=== PATIENT | female | born 1985 ===

== ENCOUNTER 2016-12-24 13:38 | Emergency (ER) | payer OTHER ==
[2016-12-24 14:05] VITALS: BMI 34.9
--- NOTE | 2016-12-24 14:41 | OBHP ---
Datetime: 12/24/2016 14:35 IP Adm Impression: Term, intrauterine IP Admit Plan: Observation/Evaluation Admit Comment, IP Provider: IUP at 40w0D unsure if she broke her water for 1w. Irrg CTX. She spoke to her mom who convinced her to come in. She was seen last this past and did not tell he r OB doctor. No VB. +FM PMH: denies PSH: denies NKA PSOH: denies smoking ETOH durg POBGYNH: no std; G1 care:[facility] then changed to Dr Nicko Brownenext appt monday; chart rev'd A: IUP at 40w no evid ROM PLAN: d/w Dr Corey.obtain BPP Abdomen - PN: Normal Back - PN: Normal Lungs - PN: Normal Heart - PN: Normal Thyroid - PN: Normal HEENT - PN: Normal General - PN: Normal Presentation-Admit: Vertex FHR - Baseline A Provider: 140 Membranes, Provider: Intact Comments, ACOG Physical Exam: ROS: General - no fatigue HEENT: No SANTO; no visual disturbance CV: no CP; no palpitations RESP: No Cough; no SOB GI: No N/V/D : No F/U/D MS: no joint pain Pool Provider: Negative Ferning Provider: Negative IP Hx Assessment: The History has been Reviewed and is Current EGA AdmitDate IP: 40.0 Vital Signs Provider: Reviewed; Within Normal Limits IP Chief Complaint: Uterine contractions; Suspected ruptured membranes NICHD Variability Prov Fetus A: Moderate 6-25bpm NICHD Accel Fetus A IP Provider: 15X15 FHR Category Provider Fetus A: Category I NICHD Decel Fetus A IP Provider: None Dilatation, Provider: closed Effacement, Provider: long Station, Provider:
--- NOTE | 2016-12-25 07:20 | US ---
PROCEDURE: HISTORY: ?rupture of membranes COMPARISON: TECHNIQUE: FINDINGS: Biophysical profile score of 8 out of 8. heart motion observed at 136 beats per minute. Amniotic fluid is within normal limits. Estimated gestational age by LMP is 40 weeks. anatomic survey not performed. IMPRESSION: As above.
== END 2016-12-24 18:10 | disposition home or self-care (01) ==
LOC: H.EROB2 13:38
DX: O47.1 False labor at or after 37 completed weeks of gestation (principal); O48.0 Post-term pregnancy; Z3A.40 40 weeks gestation of pregnancy

== ENCOUNTER 2016-12-28 01:01 | Inpatient (IN) | payer OTHER ==
[2016-12-28 01:41] VITALS: BMI 37.2
[2016-12-28] MEDS ORDERED: Lactated Ringer's 1,000 ML IV SCH (02:00)
--- NOTE | 2016-12-28 02:27 | OBHP ---
Datetime: 12/28/2016 01:30 IP Adm Impression: Term, intrauterine ; No Active Labor IP Admit Plan: Admit to unit; Initiate labor protocol IP Hx Assessment: The History has been Reviewed and is Current EGA AdmitDate IP: 40.4 IP Chief Complaint: Uterine contractions Datetime: 12/28/2016 01:20 Admit Comment, IP Provider: IUP at 40+w c/o CTX pain since this evening. No SROM. no VB. +_FM EDC Dec 24 care: [facility] then changed to Dr Nicko Salazar POBGYNH: no STD; PMHX: denies PSH: denies NKA PSoH Denies smoking ETOH drugs A: IUP at 40+w latent phase of labor PLAN: conidtion discused with Dr Bassett...will admit to L_D continue monitoring Pelvic Type - PN: Adequate Extremities - PN: Normal Abdomen - PN: Normal Back - PN: Normal Breast - PN: Not Done Lungs - PN: Normal Heart - PN: Normal Thyroid - PN: Normal Neurologic - PN: Normal HEENT - PN: Normal General - PN: Normal Presentation-Admit: Vertex FHR - Baseline A Provider: 140 Membranes, Provider: Intact Comments, ACOG Physical Exam: ROS: General - no fatigue HEENT: No SANTO; no visual disturbance CV: no CP; no palpitations RESP: No Cough; no SOB GI: No N/V/D : No F/U/D MS: no joint pain Pool Provider: Negative NICHD Decel Fetus A IP Provider: None Dilatation, Provider: 3 Effacement, Provider: 90 Station, Provider: -1 Genitourinary Exam: Normal DTRs - PN: Normal
[2016-12-28 02:28] LABS: BASO # 0.1 K/uL (0.0-0.2); BASO % 0.6 % (0.0-2.0); EOS % 0.3 % (0.0-4.0); HEMATOCRIT 37.2 % (34.0-47.0); LYMPH # 2.3 K/uL (1.0-4.3); LYMPH % 21.7 % (20.0-40.0); MEAN CELL VOLUME 91.2 fl (81.0-99.0); MEAN CORPUSCULAR HEMOGLOBIN 30.8 pg (27.0-31.0); MEAN CORPUSCULAR HGB CONC 33.8 g/dL (33.0-37.0); MEAN PLATELET VOLUME 9.3 fl (7.2-11.7); MONO # 0.5 K/uL (0.0-0.8); NEUT # 7.6 K/uL (1.8-7.0); NEUT % 72.4 % (50.0-75.0); RED CELL DISTRIBUTION WIDTH 13.4 % (11.5-14.5); WHITE BLOOD COUNT 10.5 K/uL (4.8-10.8)
--- NOTE | 2016-12-28 02:31 | OBADHP ---
Datetime: 12/28/2016 01:30 Admit Comment, IP Provider: IUP at 40+w c/o CTX pain since this evening. No SROM. no VB. +_FM EDC Dec 24 care: [facility] then changed to Dr Nicko Salazar POBGYNH: no STD; PMHX: denies PSH: denies NKA PSoH Denies smoking ETOH drugs A: IUP at 40+w latent phase of labor PLAN: Spoek with park and her family about labor, delivery, pain management, augmentation, medication s and . Her questions answered...check CBC, Type and screen RPR and HIV IVF Presentation-Admit: Vertex IP Fetus A Comments: Will prolong monitoring FHR - Baseline A Provider: 140 Contraction Comments Provider: Occ occ occ Comments, ACOG Physical Exam: ROS: General - no fatigue HEENT: No SANTO; no visual disturbance CV: no CP; no palpitations RESP: No Cough; no SOB GI: No N/V/D : No F/U/D MS: no joint pain IP Hx Assessment: The History has been Reviewed and is Current IP Chief Complaint: Uterine contractions NICHD Variability Prov Fetus A: Moderate 6-25bpm NICHD Accel Fetus A IP Provider: 10X10 FHR Category Provider Fetus A: Category II NICHD Decel Fetus A IP Provider: None Dilatation, Provider: 3 Effacement, Provider: 90 Station, Provider: -1 EGA AdmitDate IP: 40.4 IP Adm Impression: Term, intrauterine ; No Active Labor IP Admit Plan: Admit to unit; Initiate labor protocol Datetime: 12/28/2016 01:20 Pelvic Type - PN: Adequate Extremities - PN: Normal Abdomen - PN: Normal Back - PN: Normal Breast - PN: Not Done Lungs - PN: Normal Heart - PN: Normal Thyroid - PN: Normal Neurologic - PN: Normal HEENT - PN: Normal General - PN: Normal Membranes, Provider: Intact Pool Provider: Negative Genitourinary Exam: Normal DTRs - PN: Normal Datetime: 12/24/2016 14:35 Ferning Provider: Negative Vital Signs Provider: Reviewed; Within Normal Limits Datetime: 11/11/2016 20:27 Gestation - Est Wks by US: 33+ wks
[2016-12-28] MEDS: Lactated Ringer's 1,000 ML IV SCH ×2 (03:00→04:00)
[2016-12-28] MEDS ORDERED: Bupivacaine HCl 0.25% PF (10 ml) Inj ONE (04:02)
[2016-12-28] MEDS ORDERED: Fentanyl/Bupivacaine HCl 250 ML EPI ONE (04:02)
[2016-12-28 04:40] VITALS: BP 125/71; PULSE 60; RESP 18; TEMP 98.1; O2SAT 100
--- NOTE | 2016-12-28 08:08 | OBADHP ---
Datetime: 12/28/2016 08:01 Admit Comment, IP Provider: came in in severe pains early today and 3cm dilated Admitted to l/d and epidural given Some variable decels noted and more consistent now SVE 5cm 80%, AROM no fluid noted in ternal electrode applied since non-reasuring ext tracing and decel noted but recovered Will mon itor tracing Discussed with pt. agreed with above management Extremities - PN: Normal Abdomen - PN: Abnormal Back - PN: Normal Breast - PN: Normal Lungs - PN: Normal Thyroid - PN: Normal Neurologic - PN: Normal HEENT - PN: Normal General - PN: Normal Presentation-Admit: cephalic FHR - Baseline A Provider: 140's Membranes, Provider: Ruptured Contraction Comments Provider: irregular Comments, ACOG Physical Exam: Abd at term gravid NT, Ext no calf tenderness Gestation - Est Wks by US: 40+ IP Hx Assessment: The History has been Reviewed and is Current Vital Signs Provider: Reviewed IP Chief Complaint: Uterine contractions NICHD Variability Prov Fetus A: Minimal - Undetectable to <5bpm NICHD Accel Fetus A IP Provider: 10X10 NICHD Decel Fetus A IP Provider: Early; Variable Dilatation, Provider: 5cm Effacement, Provider: 80% Genitourinary Exam: Normal DTRs - PN: Normal EGA AdmitDate IP: 40.4 IP Adm Impression: Postterm, intrauterine ; Active labor IP Admit Plan: Admit to unit; Initiate labor protocol
[2016-12-28] MEDS ORDERED: Morphine 1 mg/ml preservative-free Inj(Duramorph) ONE (08:41)
[2016-12-28] MEDS ORDERED: Lidocaine 2% PF (10 ml) Amp ONE (08:42)
[2016-12-28] MEDS ORDERED: cefOXitin Sodium 1 GM in Sodium Chloride 0.9% 100 ML IVPB STA (08:43)
[2016-12-28] MEDS ORDERED: Oxytocin 30 units/LR 500ML 500 ML IV ONE (08:56)
[2016-12-28] MEDS: Oxytocin 30 units/LR 500ML 500 ML IV SCH (09:18)
[2016-12-28] MEDS ORDERED: DiphenhydrAMINE 50 mg/ml Inj IVP PRN (09:34)
--- NOTE | 2016-12-28 10:10 | OBDS ---
DELIVERY PERSONNEL Nurse Criminal Court Judge Certified: Tyrone Monroe CNM Delivery Doctor: Soha Salazar MD/Dominguez Conner MD Scrub Nurse: Keiko Sow OBT Tube And Manifold Builder: Gamal Marie RN/Eileen Anesthesiologist: Soha Phillips MD MATERNAL INFORMATION Delivery Anesthesia: Epidural Medications in Delivery: Pitocin Placenta Cultured: No Maternal Complications: None Other Maternal Complications: non reasuring tracing Provider Comments: see dictated surgeons note LABOR SUMMARY EDC: 12/24/2016 00:00 No. Babies in Womb: 1 LABOR INFORMATION Reason for Induction: Not Applicable Onset of Labor: 12/27/2016 23:00 Group B Beta Strep: Negative Steroids Given: None Reason Steroids Not Administered: Not Applicable STAGES OF LABOR Stage 3 hrs: 0 Stage 3 min: 1 Total Time in Labor hrs: 10 Total Time in Labor min: 18 VAGINAL DELIVERY Sponge Count Correct: Yes Sharps Count Correct: Yes Count Comment: count correct x3 CSECTION DELIVERY Primary Indication: Other Other Primary Indication: intolerance to labor Secondary Indication: non reasuring tracing CSection Urgency: Emergency CSection Incidence: Primary Labor: Labor CSection Incision: Lower Uterine Transverse Uterine Closure: Double-layer closure BABY A INFORMATION Infant Delivery Date/Time: 12/28/2016 09:17 Method of Delivery: Born in Route : No : N/A Forceps: N/A Vacuum Extraction: N/A Shoulder Dystocia : No SHOULDER DYSTOCIA BABY A Delivery Date/Time: 12/28/2016 09:17 PRESENTATION/POSITION BABY A Presentation: Compound PLACENTA INFORMATION BABY A Placenta Delivery Time : 12/28/2016 09:18 Placenta Method of Delivery: Expressed Placenta Status: Delivered INFORMATION BABY A Gestational Age at Delivery: 40.0 Outcome : Liveborn Condition : Stable Sex: Female CORD INFORMATION BABY A No. Cord Vessels: 3
[2016-12-28] MEDS: cefOXitin Sodium 1 GM in Sodium Chloride 0.9% 100 ML IVPB SCH (17:33)
[2016-12-29] MEDS: cefOXitin Sodium 1 GM in Sodium Chloride 0.9% 100 ML IVPB SCH (00:29)
[2016-12-29] MEDS: Simethicone 80 mg Chewtab PO PRN ×2 (06:44→22:12)
--- NOTE | 2016-12-29 07:54 | OBPPN ---
Datetime: 12/29/2016 07:50 PP Pain Prov: Within normal limits PP Pain Prov comment: No SOB, chest pains or leg pains PP Nausea Prov: Denies PP Flatus Prov: Yes PP BM Prov: No PP Breasts Prov: Normal PP Lungs Prov: Normal PP Abdomen/Uterus Prov: Abnormal PP Lochia Prov: Normal PP Vulva/Perineum Prov: Normal PP CVA Tenderness Prov: Normal PP Extremities Prov: Normal PP C/S Incision Prov: Normal PP Progress Prov: Normal PP Comments Phys Exam Prov: Abd soft not distended, fundus firm below the umb. Dressing intact breanna nat, no active bleeding or suppt. Ext no calf tenderness PP Impression Prov: Normal progression PP Plan Prov: Continue present management PP Progress Note Prov: OOB to chair with help, increase diet as tolerated, pending CBC results. Gerardo byrnes po care
[2016-12-29 08:00] LABS: HEMATOCRIT 32.3 % (34.0-47.0); MEAN CELL VOLUME 91.2 fl (81.0-99.0); MEAN CORPUSCULAR HEMOGLOBIN 31.7 pg (27.0-31.0); MEAN CORPUSCULAR HGB CONC 34.8 g/dL (33.0-37.0); RED CELL DISTRIBUTION WIDTH 13.4 % (11.5-14.5); WHITE BLOOD COUNT 8.6 K/uL (4.8-10.8)
[2016-12-29] MEDS: Oxycodone/Acetaminophen 5/325 mg Tab PO PRN ×2 (09:33→17:35)
[2016-12-29] MEDS ORDERED: cefOXitin Sodium 1 GM in Sodium Chloride 0.9% 100 ML IVPB SCH (10:00)
[2016-12-30] MEDS: Simethicone 80 mg Chewtab PO PRN ×3 (09:25→19:53)
--- NOTE | 2016-12-30 13:26 | OBPPN ---
Datetime: 12/30/2016 12:13 PP Pain Prov: Within normal limits PP Pain Prov comment: No SOB, chest pains or leg pains PP Nausea Prov: Denies PP Flatus Prov: Yes PP BM Prov: No PP Breasts Prov: Normal PP Lungs Prov: Normal PP Abdomen/Uterus Prov: Abnormal PP Lochia Prov: Normal PP Vulva/Perineum Prov: Normal PP CVA Tenderness Prov: Normal PP Extremities Prov: Normal PP C/S Incision Prov: Normal PP Progress Prov: Normal PP Comments Phys Exam Prov: Abd soft ND, depressible fundus firm below the umb. Incision clean and d ry no suppt or discharge no sign of infection Ext no calf tenderness PP Impression Prov: Normal progression PP Plan Prov: Continue present management PP Plan Other Prov: dulcolax suppt PP Progress Note Prov: OOB and ambulation, continue po care IP PP Procedures: None
[2016-12-31] MEDS: Simethicone 80 mg Chewtab PO PRN ×2 (09:58→22:41)
--- NOTE | 2016-12-31 12:24 | OBPPN ---
Datetime: 12/31/2016 12:13 PP Pain Prov: Within normal limits PP Nausea Prov: Denies PP Flatus Prov: Yes PP Breasts Prov: Normal PP Heart Prov: Normal PP Lungs Prov: Normal PP Abdomen/Uterus Prov: Normal PP Lochia Prov: Normal PP Vulva/Perineum Prov: Normal PP CVA Tenderness Prov: Normal PP Extremities Prov: Normal PP C/S Incision Prov: Normal PP Progress Prov: Normal PP Impression Prov: Normal progression PP Plan Prov: Continue present management PP Progress Note Prov: stable pod3 continue present care IP PP Procedures: None Vital Signs Provider PP: Reviewed; Within Normal Limits
[2017-01-01] MEDS: Simethicone 80 mg Chewtab PO PRN (09:59)
--- NOTE | 2017-01-01 11:08 | OBPPN ---
Datetime: 01/01/2017 11:05 PP Pain Prov: Within normal limits PP Pain Prov comment: no SOB, chest pains or leg pains PP Nausea Prov: Denies PP Flatus Prov: Yes PP BM Prov: Yes PP Breasts Prov: Normal PP Heart Prov: Normal PP Abdomen/Uterus Prov: Abnormal PP Lochia Prov: Normal PP Vulva/Perineum Prov: Normal PP CVA Tenderness Prov: Normal PP Extremities Prov: Normal PP C/S Incision Prov: Normal PP Progress Prov: Normal PP Comments Phys Exam Prov: Abd soft ND, depressible, fundus firm below the umb. Incision clean and dry no suppt or discharge prolene in place. Ext no calf tenderness. PP Impression Prov: Normal progression PP Plan Prov: Discharge PP Progress Note Prov: D/C home and folllow up ofice 1 wk IP PP Procedures: None Vital Signs Provider PP: Reviewed
--- NOTE | 2017-01-01 12:27 | OBDCSUM ---
Datetime: 01/01/2017 12:25 Discharged to, Provider: Home Follow up at, Provider: Dr Martin Ospina Instr Activity: Bedrest; May be up to bathroom; May be up for meals; May Shower Disch Instr Diet: Regular Discharge Instructions, Provider: Routine instructions given Discharge Diagnosis, Provider: Term Delivered Discharge Time: 01/01/2017 12:25 Follow up in weeks, Provider: 1 wk Disch Referrals: None Contraception discussed, Prov: Yes Disch Activity Restrictions: No exercising; No lifting; No driving; Minimize walking; Minimize stair -climbing; No sexual activity; Nothing in vagina - Galt, tampons, douche Discharge Comment, Provider: instructions given Contraception after Delivery: Undecided Datetime: 01/01/2017 11:49 Discharged to, Provider: Home Follow up at, Provider: Dr. Martin Ospina Instr Activity: Normal activity; May be up to bathroom; May be up for meals; May Shower Disch Instr Diet: Regular Follow up in weeks, Provider: 1 week Disch Referrals: None Disch Activity Restrictions: Minimize stair-climbing; No sexual activity; Nothing in vagina - Interc ourse, tampons, douche
--- NOTE | 2017-01-02 19:12 | OP ---
PROCEDURE DATE: 12/28/2016 PREOPERATIVE DIAGNOSES: 1. at 40+ weeks gestation. 2. Labor. 3. Non reassuring tracing. 4. intolerance to labor. POSTOPERATIVE DIAGNOSES: 1. at 40+ weeks gestation. 2. Labor. 3. Non reassuring tracing. 4. intolerance to labor. 5. Thick meconium stained fluid. 6. Compound presentation. PROCEDURE PERFORMED: Primary low transverse segment section. SURGEON: Dr. Salazar. HEALTH CARE LEGAL ASSISTANT: Suzy Granados. Dr. Conner was there present during the entire procedure. Physical Science Technician was needed in order to position the patient, open up the abdomen, delivery of the baby an d closure of the abdomen. ANESTHESIA USED: Epidural per Dr. Phillips. ESTIMATED BLOOD LOSS: 800 mL. DRAINS USED: None. REPLACEMENTS USED: None. FINDINGS: 1. Delivered a living baby girl. Baby appears term. Baby cries spontaneously. Compound presentati on with the left arm. 2. Amniotic fluid thick meconium stained. 3. Placenta complete and intact with meconium stained membranes. 4. Both tubes and ovaries appear grossly within normal limits to inspection bilaterally. PROCEDURE: The patient was taken to the operating room and placed on the operating table in a supine position. Following augmentation of epidural anesthesia, the abdomen was draped and prepped in the usual sterile manner. Gacria catheter had been inserted into the bladder and was draining fluid. At this time, Venodyne boots were then applied to both legs and after draping and prepping the abdomen, anesthesia tested and found to be well secure. A Pfannenstiel incision was then made using sharp dis section 2 fingerbreadths above the symphysis pubis. The incision was then extended down to subcutane ous tissue using sharp dissection. Hemostasis was obtained by means of electrocoagulation. Fascia w as then identified, was then entered at the midline. Incision in the fascia was then extended latera lly on each direction. Following this, we then proceeded to identify the rectus muscle, which was th en slit at the midline exposing the peritoneum. Peritoneal layer was then picked up using 2 Yamile cl amps, retracted superiorly and then entered using sharp dissection. The bladder was then identified and was then retracted inferiorly using a [place] retractor. The low transverse segment of the uteru s was then identified and the visceral peritoneum covering this area was then entered using sharp dis section. Using blunt dissection, a bladder flap was then created and retracted inferiorly using the same [place] retractor. Following this, an incision was then made in the low transverse segment of t he uterus. Upon entering the uterine cavity, thick meconium stained fluid noted to be present. At t his time, the incision was then extended laterally in each direction using bandage scissors. Using a manual scooping procedure, a living baby girl was then delivered. The baby was immediately and aggr essively aspirated using a bulb suction. The umbilicus was then doubly clamped, cut and the baby was handed to the pediatric personnel who was standing by. The baby appeared to have been in a compound presentation with the left arm. At this time, samples of cord blood were then obtained and the plac enta was then delivered complete and intact. Edges of the uterine incision were then secured using m ultiple T clamps. The uterus was then exteriorized to provide better visualization and the uterine c avity was then thoroughly cleaned using moist lap pad. The uterus massaged and contracted well. At this time, the uterine incision was then approximated using 0 Vicryl suture in a continuous interlock ing manner. A second layer was also applied using 0 Vicryl suture in a continuous manner. Hemostasi s checked and found to be well secure. The bladder flap was then approximated using a 2-0 Vicryl in a continuous manner. Following this, we then proceeded to note that both tubes and ovaries appear gr ossly within normal limits to inspection bilaterally. Free amniotic fluid and blood were then evacua minna from the pelvic cavity. The pelvic cavity was then thoroughly cleaned using saline solution and all operative areas checked, hemostatically secure. The uterus was then allowed to retract back into its original position. Again, all operative areas checked, hemostatically secure and the peritoneum was then closed using 0 Vicryl suture in a continuous manner. Rectus muscle was also closed in the midline using 0 Vicryl suture in a continuous manner. Fascia was then identified, was then approxima minna using 1 Vicryl suture in a continuous manner. Fascia was then checked and found to be free of de fect. Subcutaneous tissue was then irrigated using saline solution and approximated using several in terrupted 2-0 plain suture. The skin was then approximated using a 3-0 Prolene in a subcuticular fas hion. Steri-Strips were then applied to the incision. The patient tolerated the procedure well. Th ere were no complications. She was transferred to the recovery room in satisfactory condition. Albina r fluid noted to be present in the Garcia bag at this time. Sponge, instrument, and needle count albert ect x 3. Keyon Salazar MD cc: 71 TT: 01/02/2017 19:11:33 jn
== END 2017-01-01 14:00 | disposition home or self-care (01) | DRG 371 ==
LOC: H.EROB2 01:01 → H.L&D 01:47 → H.OB/GYN 15:19
PROVIDERS: ADMIT Specialist; ATTEND Specialist
PROC: 10D00Z1 Extraction of Products of Conception, Low, Open Approach (ICD-10-PCS; principal; 2016-12-28)
PROC: 4A1HXCZ Monitoring of Products of Conception, Cardiac Rate, External Approach (ICD-10-PCS; 2016-12-28)
DX: O76 Abnormality in fetal heart rate and rhythm complicating labor and delivery (principal); O32.6XX0 Maternal care for compound presentation, not applicable or unspecified; Z37.0 Single live birth; O77.0 Labor and delivery complicated by meconium in amniotic fluid; Z3A.40 40 weeks gestation of pregnancy

== ENCOUNTER 2018-04-27 10:52 | Emergency (ER) | payer OTHER ==
[2018-04-27 10:52] VITALS: BMI 37.2
[2018-04-27 11:09] VITALS: TEMP 98.6; O2SAT 100
--- NOTE | 2018-04-27 11:34 | ED PDOC ---
HPI: Female Pain Time Seen by Provider: 04/27/18 11:13 Chief Complaint (Nursing): Female Genitourinary History Per: Patient Onset/Duration Of Symptoms: Other (1 week) Current Symptoms Are (Timing): Still Present Severity: Mild Associated Symptoms: Nausea Additional Complaint(s): Nausea and malaise x 1 week. No vomiting or diarrhea. Home preg equivocal. LMP March 07. Denies bad pain or vaginal bleeding. Abnormal Vaginal Bleeding: No Past Medical History Vital Signs: Last Vital Signs Temp 98.6 F 04/27/18 11:06 Pulse 98 H 04/27/18 11:06 Resp 18 04/27/18 11:06 BP 107/71 04/27/18 11:06 Pulse Ox 100 04/27/18 11:06 - Medical History PMH: No Chronic Diseases - Family History Family History: States: Unknown Family Hx - Immunization History Hx Tetanus Toxoid Vaccination: No Hx Influenza Vaccination: No Hx Pneumococcal Vaccination: No - Home Medications Home Medications: Ambulatory Orders Medication Instructions Recorded Multivit/Folic Acid/I 1 tab PO DAILY 12/24/16 [ Plus] oxyCODONE/Acetaminophen [Percocet 1 ea PO Q4 PRN #30 tab 01/01/17 5/325 mg Tab] Doxylamine/Pyridoxine HCl (B6) 1 each PO DAILY #15 tablet. 04/27/18 [Rocio Mann 10-10 mg Tablet] - Allergies Allergies/Adverse Reactions: Allergies Allergy/AdvReac Type Severity Reaction Status Date / Time latex Allergy Mild itching,LINUS Verified 12/29/16 14:19 H Review of Systems Constitutional: Negative for: Fever Gastrointestinal: Positive for: Nausea. Negative for: Abdominal Pain, Diarrhea Genitourinary Female: Negative for: Dysuria, Frequency, Vaginal Bleeding Physical Exam - Physical Exam Appears: Positive for: Non-toxic, No Acute Distress Skin: Positive for: Normal Color, Warm, DRY Cardiovascular/Chest: Positive for: Regular Rate, Rhythm Respiratory: Positive for: CNT, Normal Breath Sounds Gastrointestinal/Abdominal: Positive for: Bowel Sounds, Soft. Negative for: Tenderness Extremity: Positive for: Normal ROM Neurologic/Psych: Positive for: Alert, Oriented - Laboratory Results Result Diagrams: 04/27/18 12:09 04/27/18 12:09 - ECG O2 Sat by Pulse Oximetry: 100 Disposition - Clinical Impression Clinical Impression: Morning sickness, - Patient ED Disposition Is Patient to be Admitted: No Counseled Patient/Family Regarding: Studies Performed, Diagnosis, Need For Followup, Rx Given - Disposition [facility] Disposition: Routine/Home Disposition Time: 13:14 Condition: FAIR Prescriptions: Doxylamine/Pyridoxine HCl (B6) [Rocio Mann 10-10 mg Tablet] 1 each PO DAILY # 15 tablet. Instructions: Morning Sickness (DC), - The First Month Forms: [employer] (Cameroonian) Print Language: [place] CITIZEN
[2018-04-27 12:18] LABS: BASO % 0.5 % (0.0-2.0); EOS % 0.3 % (0.0-4.0); HEMOGLOBIN 13.7 g/dL (12.0-16.0); LYMPH # 1.6 K/uL (1.0-4.3); LYMPH % 22.6 % (20.0-40.0); MEAN CELL VOLUME 90.3 fl (81.0-99.0); MEAN CORPUSCULAR HEMOGLOBIN 30.8 pg (27.0-31.0); MEAN CORPUSCULAR HGB CONC 34.1 g/dL (33.0-37.0); MEAN PLATELET VOLUME 8.4 fl (7.2-11.7); MONO # 0.3 K/uL (0.0-0.8); MONO % 4.9 % (0.0-10.0); NEUT # 5.1 K/uL (1.8-7.0); NEUT % 71.7 % (50.0-75.0); RBC 4.44 Mil/uL (3.80-5.20); RED CELL DISTRIBUTION WIDTH 12.9 % (11.5-14.5); WHITE BLOOD COUNT 7.1 K/uL (4.8-10.8)
[2018-04-27 12:52] LABS: ALBUMIN 4.2 g/dL (3.5-5.0); BLOOD UREA NITROGEN 8 mg/dl (7-17); CALCIUM 9.7 mg/dL (8.4-10.2); GFR NON-AFRICAN AMERICAN > 60
[2018-04-27 12:53] LABS: ALB/GLOB RATIO 1.1 (1.0-2.1); ALT/SGPT 20 U/L (9-52); AST/SGOT 19 U/L (14-36)
[2018-04-27 13:31] VITALS: BP 96/60; PULSE 74; RESP 14
== END 2018-04-27 13:30 | disposition home or self-care (01) ==
LOC: H.ER 10:52
DX: O21.0 Mild hyperemesis gravidarum (principal)

== ENCOUNTER 2018-10-05 11:31 | Emergency (ER) | payer OTHER ==
[2018-10-05 11:53] VITALS: BMI 33.7
[2018-10-05 11:56] VITALS: O2SAT 99
--- NOTE | 2018-10-05 14:59 | ED PDOC ---
HPI: General Adult Time Seen by Provider: 10/05/18 12:53 Chief Complaint (Nursing): Weakness/Neurological Deficit History Per: Patient Onset/Duration Of Symptoms: Days (2) Current Symptoms Are (Timing): Better Severity: Mild Additional Complaint(s): Generalized weakness and nausea since yesterday. Denies vomiting or diarrhea. Denies fever or cough. Denies urinary sxs. Denies vaginal bleeding or and pain. Past Medical History Vital Signs: Last Vital Signs Temp 98.5 F 10/05/18 11:53 Pulse 111 H 10/05/18 11:53 Resp 20 10/05/18 11:53 BP 112/69 10/05/18 11:53 Pulse Ox 99 10/05/18 11:53 - Medical History PMH: No Chronic Diseases - Family History Family History: States: Unknown Family Hx - Immunization History Hx Tetanus Toxoid Vaccination: No Hx Influenza Vaccination: No Hx Pneumococcal Vaccination: No - Home Medications Home Medications: Ambulatory Orders Medication Instructions Recorded Multivit/Folic Acid/I 1 tab PO DAILY 12/24/16 [ Plus] oxyCODONE/Acetaminophen [Percocet 1 ea PO Q4 PRN #30 tab 01/01/17 5/325 mg Tab] Doxylamine/Pyridoxine HCl (B6) 1 each PO DAILY #15 tablet. 04/27/18 [Rocio Mann 10-10 mg Tablet] - Allergies Allergies/Adverse Reactions: Allergies Allergy/AdvReac Type Severity Reaction Status Date / Time latex Allergy Mild itching,LINUS Verified 10/05/18 12:22 H Review of Systems Constitutional: Negative for: Fever Gastrointestinal: Positive for: Nausea. Negative for: Vomiting, Abdominal Pain, Diarrhea Genitourinary Female: Negative for: Dysuria, Frequency, Vaginal Bleeding Physical Exam - Physical Exam Appears: Positive for: Non-toxic, No Acute Distress Cardiovascular/Chest: Positive for: Regular Rate, Rhythm Respiratory: Positive for: CNT, Normal Breath Sounds Gastrointestinal/Abdominal: Positive for: Bowel Sounds, Soft, Other (Gravid). Negative for: Tenderness Neurologic/Psych: Positive for: Alert, Oriented. Negative for: Motor/Sensory Deficits - ECG O2 Sat by Pulse Oximetry: 99 Disposition - Clinical Impression Clinical Impression: - Patient ED Disposition Is Patient to be Admitted: Transfer of Care - Disposition Disposition: Transfer of Care Disposition Time: 15:08 Condition: FAIR Forms: [employer] (Welsh) Patient Signed Over To: Melisa Patrick
[2018-10-05 15:24] LABS: BASO % 0.4 % (0.0-2.0); EOS % 0.2 % (0.0-4.0); HEMOGLOBIN 11.1 g/dL (12.0-16.0); LYMPH # 1.9 K/uL (1.0-4.3); LYMPH % 21.6 % (20.0-40.0); MEAN CORPUSCULAR HEMOGLOBIN 30.4 pg (27.0-31.0); MEAN CORPUSCULAR HGB CONC 33.4 g/dL (33.0-37.0); MEAN PLATELET VOLUME 7.9 fl (7.2-11.7); MONO # 0.4 K/uL (0.0-0.8); MONO % 4.4 % (0.0-10.0); NEUT # 6.4 K/uL (1.8-7.0); NEUT % 73.4 % (50.0-75.0); NRBC % 0.1 % (0.0-0.0); RBC 3.67 Mil/uL (3.80-5.20); RED CELL DISTRIBUTION WIDTH 12.2 % (11.5-14.5); WHITE BLOOD COUNT 8.7 K/uL (4.8-10.8)
[2018-10-05 15:35] LABS: ALBUMIN 3.6 g/dL (3.5-5.0); ALT/SGPT 12 U/L (9-52); AST/SGOT 21 U/L (14-36); BLOOD UREA NITROGEN 7 mg/dl (7-17); GFR NON-AFRICAN AMERICAN > 60
--- NOTE | 2018-10-05 15:54 | ED PDOC ---
- Laboratory Results Result Diagrams: 10/05/18 15:18 10/05/18 15:18 - ECG O2 Sat by Pulse Oximetry: 99 - Progress ED Course And Treament: 3p Rec'd endorsement from Dr Mcqueen who d/w Dr Salazar. Labs pending and when resulted pt to be sent to [facility] for NST. 345p Labs resulted. Pt to be sent to [facility]. Disposition - Clinical Impression Clinical Impression: - POA Present On Arrival: None - Disposition Disposition: Routine/Home (dc'd to go to [facility]) Disposition Time: 15:54 Condition: STABLE Additional Instructions: GO TO OB ED FOR FURTHER EVALUATION Instructions: - The Seventh Month Forms: [employer] (Serbian)
[2018-10-05 16:50] VITALS: BP 116/80; PULSE 72; RESP 17; TEMP 98.3
== END 2018-10-05 16:10 | disposition home or self-care (01) ==
LOC: H.ER 11:31
DX: Z33.1 Pregnant state, incidental (principal)

== ENCOUNTER 2018-10-21 01:48 | Emergency (ER) | payer OTHER ==
[2018-10-21 01:48] VITALS: BMI 35.4
[2018-10-21 02:03] VITALS: RESP 17; O2SAT 98
[2018-10-21 07:48] VITALS: BP 100/63; PULSE 118; TEMP 98
--- NOTE | 2018-10-22 13:46 | OBHP ---
Datetime: 10/21/2018 03:17 IP Adm Impression: , intrauterine ; No Active Labor IP Chief Complaint Other: abdominal discomfort IP Adm Impression Other: Gastritis IP Admit Plan: Observation/Evaluation; Discharge home Admit Comment, IP Provider: Patient reports to the labor and delivery today for check up. She report s that her is being seen at the ER for abdominal cramps and she wants to be checked up for ab dominal discomfort. She and her may have eaten something and they are having the cramps. She denies any fever, diarrhea or vomitting. O: Afebrile ChestL CTA B/L Abd: Soft, NT, BS- present FHR- Category 1 Assessment: IUP at 32weeks Abdominal discomfort NST- Reactive. Plan: D/C Home Antacids recommended Follow up with Dr Salazar. Pelvic Type - PN: Adequate Extremities - PN: Normal Abdomen - PN: Normal Back - PN: Normal Breast - PN: Normal Lungs - PN: Normal Heart - PN: Normal Thyroid - PN: Normal Neurologic - PN: Normal HEENT - PN: Normal General - PN: Normal FHR - Baseline A Provider: 150 Gestation - Est Wks by US: 32.0 EGA AdmitDate IP: 32.1 Vital Signs Provider: Reviewed IP Chief Complaint: Other NICHD Variability Prov Fetus A: Moderate 6-25bpm NICHD Accel Fetus A IP Provider: 15X15 FHR Category Provider Fetus A: Category I NICHD Decel Fetus A IP Provider: None Genitourinary Exam: Normal DTRs - PN: Normal
== END 2018-10-21 03:31 | disposition home or self-care (01) ==
LOC: H.EROB2 01:48
DX: O26.93 Pregnancy related conditions, unspecified, third trimester (principal); R10.2 Pelvic and perineal pain; Z3A.32 32 weeks gestation of pregnancy

== ENCOUNTER 2018-12-07 01:20 | Inpatient (IN) | payer OTHER ==
[2018-12-07 02:00] VITALS: BMI 38.6
[2018-12-07] MEDS ORDERED: cefOXitin Sodium 1 GM in Sodium Chloride 0.9% 100 ML IVPB ONE (02:00)
[2018-12-07 02:18] VITALS: RESP 20; O2SAT 100
[2018-12-07] MEDS ORDERED: Oxytocin 30 UNIT in NS 500 ml 30 UNITS/500 ML BAG IV ONE (02:30)
[2018-12-07] MEDS ORDERED: OXYTOCIN/0.9 % NS 20 UNIT/1,000 ML BAG IV ONE (02:31)
[2018-12-07 02:51] LABS: BASO % 0.3 % (0.0-2.0); EOS # 0.1 K/uL (0.0-0.7); EOS % 0.8 % (0.0-4.0); HEMOGLOBIN 9.7 g/dL (12.0-16.0); LYMPH # 2.5 K/uL (1.0-4.3); LYMPH % 28.2 % (20.0-40.0); MEAN CORPUSCULAR HEMOGLOBIN 27.9 pg (27.0-31.0); MEAN CORPUSCULAR HGB CONC 33.2 g/dL (33.0-37.0); MEAN PLATELET VOLUME 7.8 fl (7.2-11.7); MONO # 0.5 K/uL (0.0-0.8); MONO % 6.1 % (0.0-10.0); NEUT # 5.6 K/uL (1.8-7.0); NEUT % 64.6 % (50.0-75.0); RBC 3.47 Mil/uL (3.80-5.20); RED CELL DISTRIBUTION WIDTH 13.9 % (11.5-14.5); WHITE BLOOD COUNT 8.7 K/uL (4.8-10.8)
[2018-12-07] MEDS: Lactated Ringer's 1,000 ML IV ONE ×2 (05:00→05:24)
[2018-12-07] MEDS ORDERED: Morphine 5 mg/10 ml preservative-free Inj(Duramorph) ONE (06:18)
[2018-12-07] MEDS ORDERED: Esmolol 100 mg/10ml Inj IV ONE (06:36)
[2018-12-07] MEDS ORDERED: Oxycodone/Acetaminophen 5/325 mg Tab PO PRN ×2 (07:38→09:49)
[2018-12-07] MEDS ORDERED: Lactated Ringer's 1,000 ML IV SCH (07:45)
[2018-12-07] MEDS ORDERED: cefOXitin Sodium 1 GM in Sodium Chloride 0.9% 100 ML IVPB SCH (14:00)
--- NOTE | 2018-12-07 17:07 | OBDS ---
DELIVERY PERSONNEL Delivery Doctor: Soha Salazar MD Cab Supervisor: Alyssa Shetty RN Anesthesiologist: Dr. Matute Molding Plasterer: José Miguel Matute MATERNAL INFORMATION Delivery Anesthesia: Spinal Medications in Delivery: Pitocin 30 mu/500 mL LR, Pitocin 20 mu/1000 mL LR Estimated Blood Loss (ml): 800 Placenta Cultured: No Maternal Complications: None Provider Comments: see dictated surgeons note LABOR SUMMARY EDC: 12/15/2018 00:00 No. Babies in Womb: 1 Attempted: No Labor Anesthesia: None LABOR INFORMATION Reason for Induction: Not Applicable Oxytocin: N/A Group B Beta Strep: Negative Antibiotics # of Doses: 1 Antibiotics Time of Last Dose: 0635 Steroids Given: None Reason Steroids Not Administered: Not Applicable MEMBRANES Membranes Rupture Method: Artificial Rupture of Membranes: 12/07/2018 06:50 Length of Rupture (hrs): 0.00 Amniotic Fluid Color: Clear Amniotic Fluid Amount: Large Amniotic Fluid Odor: None STAGES OF LABOR Stage 3 hrs: 0 Stage 3 min: 2 VAGINAL DELIVERY Episiotomy: None Laceration Extension: N/A Laceration Type: None Laceration Repair: Not Applicable Laceration Repair Note: n/a Sponge Count Correct: Yes Sharps Count Correct: Yes Count Comment: count correct x3 CSECTION DELIVERY Primary Indication: Repeat Elective Other Primary Indication: multiparity and desire for sterilization Secondary Indication: Other CSection Urgency: Non Elective CSection Incidence: Repeat Labor: No Labor Elective: Nonelective CSection Incision: Lower Uterine Transverse Other Sterilization Procedure: Modified [place] Uterine Closure: Double-layer closure BABY A INFORMATION Delivery Date/Time: 12/07/2018 06:50 Method of Delivery: Born in Route : No : N/A Forceps: N/A Vacuum Extraction: N/A Shoulder Dystocia : No SHOULDER DYSTOCIA BABY A Delivery Date/Time: 12/07/2018 06:50 PRESENTATION/POSITION BABY A Presentation: Cephalic Cephalic Presentation: Vertex Breech Presentation: N/A PLACENTA INFORMATION BABY A Placenta Delivery Time : 12/07/2018 06:52 Placenta Method of Delivery: Expressed Placenta Status: Delivered SCORES BABY A Heart Rate 1 min: >100 bpm Resp Effort 1 min: Good Cry Reflex Irritability 1 min: Cough or Sneeze or Pulls Away Muscle Tone 1 min: Active Motion Color 1 min: Body [place], Extremities Blue Resuscitation Effort 1 min: N/A SCORE 1 MIN: 9 Heart Rate 5 min: >100 bpm Resp Effort 5 min: Good Cry Reflex Irritability 5 min: Cough or Sneeze or Pulls Away Muscle Tone 5 min: Active Motion Color 5 min: Body [place], Extremities Blue Resuscitation Effort 5 min: N/A SCORE 5 MIN: 9 INFORMATION BABY A Gestational Age at Delivery: 38.6 Gestational Status: Term Outcome : Liveborn Infant Condition : Stable Sex: Male IDENTIFICATION/MEDS BABY A ID Band Number: [id number] ID Band Location: Left Leg; Left Arm WEIGHT/LENGTH BABY A Infant Birthweight (gms): 4005 Weight (lb): 8 Weight (oz): 13 CORD INFORMATION BABY A No. Cord Vessels: 3 Nuchal Cord : N/A Cord Blood Taken: Yes Suction: Mouth; Nose
[2018-12-07] MEDS: Lactated Ringer's 1,000 ML IV SCH ×2 (17:49→18:00)
[2018-12-07] MEDS: cefOXitin Sodium 1 GM in Sodium Chloride 0.9% 100 ML IVPB SCH (23:36)
[2018-12-08] MEDS: Lactated Ringer's 1,000 ML IV SCH (01:59)
[2018-12-08 05:23] LABS: MEAN CELL VOLUME 85.1 fl (81.0-99.0); MEAN CORPUSCULAR HEMOGLOBIN 27.6 pg (27.0-31.0); MEAN CORPUSCULAR HGB CONC 32.4 g/dL (33.0-37.0); RBC 3.63 Mil/uL (3.80-5.20); RED CELL DISTRIBUTION WIDTH 14.1 % (11.5-14.5); WHITE BLOOD COUNT 10.3 K/uL (4.8-10.8)
[2018-12-08] MEDS: cefOXitin Sodium 1 GM in Sodium Chloride 0.9% 100 ML IVPB SCH (08:12)
--- NOTE | 2018-12-08 15:25 | OBPPN ---
Datetime: 12/08/2018 15:20 PP Pain Prov: Within normal limits PP Pain Prov comment: no SOB, chest or leg pains PP Nausea Prov: Denies PP Flatus Prov: Yes PP BM Prov: Yes PP Breasts Prov: Normal PP Lungs Prov: Normal PP Abdomen/Uterus Prov: Abnormal PP Lochia Prov: Normal PP Vulva/Perineum Prov: Normal PP CVA Tenderness Prov: Normal PP Extremities Prov: Normal PP C/S Incision Prov: Normal PP Progress Prov: Normal PP Comments Phys Exam Prov: breast not engorged, NT; abd soft ND fundus firm below the umb Incision clean and dry ken in place Ext no calf tenderness PP Impression Prov: Normal progression PP Plan Prov: Continue present management PP Progress Note Prov: CBC stable Continue PP care OOB and ambulation IP PP Procedures: None Vital Signs Provider PP: Reviewed
--- NOTE | 2018-12-08 18:05 | OP ---
PROCEDURE DATE: 12/07/2018 PREOPERATIVE DIAGNOSES: 1. at term. 2. Previous section. 3. Multiparity of voluntary sterilization. POSTOPERATIVE DIAGNOSES: 1. at term. 2. Previous section. 3. Multiparity of voluntary sterilization. 4. Pelvic adhesions. SURGEON: Keyon Salazar MD PULVERIZER: Dr. Conner. Dr. Conner was present during the entire duration of the case. Assistance is needed in order to provide positioning of the patient, opening up the abdomen, delivery of the baby, and closure of the abdomen. No vice president commercial bank is available at this time. ANESTHESIA USED: Spinal per Dr. Matute. ESTIMATED BLOOD LOSS: 800 mL. DRAINS USED: None. REPLACEMENT USED: None. FINDINGS: 1. Delivered living baby boy. Baby appears term. Baby cried spontaneously. Baby appears large for gestational age. 2. Amniotic fluid clear. 3. Placenta complete and intact. 4. Both tubes and ovaries appear with small adhesions to each other, but otherwise grossly within normal limits to inspection. 5. Bilateral tubal sterilization performed using a modified Leodan procedure without any complications. 6. Adhesions of the omentum to the anterior abdominal wall were noted and were lysed. DESCRIPTION OF PROCEDURE: The patient was taken to the operating room and placed on the operating table in a supine position. Following induction of spinal anesthesia, the patient was then replaced in a supine position. A Garcia catheter was inserted into the bladder and was draining clear fluid. At this time, Venodyne boots were applied to both legs and the abdomen was draped and prepped in the usual sterile manner. A Pfannenstiel incision was then made after checking anesthesia and felt to be well secured along the edges of the previous incision. The incision was then extended down to subcutaneous tissue, also using sharp dissection. At this time, we then proceeded to obtain hemostasis by means of electrocoagulation. The incision was then extended down to the fascia. Fascia was then entered at the midline and incision on the fascia was then extended laterally using sharp dissection. Rectus muscle was then identified, was then slit at the midline, exposing the peritoneum. Peritoneal layer was then picked up using two Yamile clamps, retracted superiorly, and then entered using sharp dissection. Incision on the peritoneum was then extended superiorly and inferiorly under direct visualization. At this time, some adhesions noted to be present between the omentum and the anterior abdominal wall. These adhesions were lysed using electrocoagulation in order to provide later on prevention of future bowel entrapment. At this time, the low transverse segment of the uterus was then identified and the bladder was identified. The bladder was then retracted inferiorly using the Isac retractor. Using sharp dissection, the low transverse segment of the uterus was then entered after the bladder flap had been created using blunt dissection. Following this, we then proceeded to make an incision in the low transverse segment of the uterus, and upon entering the uterine cavity, clear fluid noted to be present. At this time, the low transverse segment of the uterus was extended laterally in each direction using bandage scissors. Using the manual scooping procedure, a living baby boy was then delivered. The baby cried spontaneously and was immediately aspirated using the bulb suction. The baby appeared term, but large for gestational age. The umbilicus was then doubly clamped and cut, and the baby was handed to the pediatric personnel who was standing by. Samples of cord blood were then obtained and the placenta was then delivered complete and intact. At this time, the uterus was then exteriorized to provide better visualization. The uterine cavity was then thoroughly cleaned using moist lap pad and the uterus was massaged and contracted well. Uterine incision was then secured using multiple T clamps, was then approximated using 0-Vicryl suture in a continuous interlocking manner. A second layer was also applied using 0-Vicryl suture in a continuous manner. Hemostasis was checked and found to be well secured. At this time, both tubes and ovaries appeared grossly within normal limits to inspection except for minor adhesions to each other. The patient was reaffirmed her decision of bilateral tubal sterilization and the right fallopian tube was then folded to its fimbriated end and grasped at the ampullary region using the West clamp and retracted superiorly. Using 2-0 chromic, this section of the tube was then ligated after passing the 2-0 chromic through the mesosalpinx. A 2-0 chromic free tie was then placed underneath the ligature and the ligated section on the tube was then resected and sent to pathology for proper pathological evaluation. Same procedure was then performed on the contralateral side without any complications. Following bilateral tubal sterilization, all operative areas checked, hemostatically secured. Free amniotic fluid and blood were evacuated from the pelvic cavity. Pelvic cavity was then thoroughly irrigated using saline solution and the uterus was then allowed to retract back into its original position. All operative areas checked, hemostatically secured, and the peritoneum was then closed using 0-Vicryl suture in a continuous manner. Rectus muscle was also approximated in the midline using 0 Vicryl suture in a continuous manner. At this time, muscle appears to be hemostatically secure and the fascia was then identified and approximated using 1 Vicryl suture in a continuous manner. Fascia was then checked and found to be free of defect. Subcutaneous tissue was then irrigated using saline solution and approximated using several interrupted 2-0 plain sutures. The skin was then approximated using a skin staple. The patient tolerated the procedure well. There were no complications. Clear fluid noted to be present in the Garcia bag at this time. Sponge, instrument, and needle counts were correct x3. Keyon Salazar MD
[2018-12-08] MEDS: Simethicone 80 mg Chewtab PO SCH (23:46)
[2018-12-09] MEDS: Simethicone 80 mg Chewtab PO SCH ×4 (08:56→22:12)
--- NOTE | 2018-12-09 14:24 | OBPPN ---
Datetime: 12/09/2018 14:19 PP Pain Prov: Within normal limits PP Pain Prov comment: No SOB, chest or leg pains PP Nausea Prov: Denies PP Flatus Prov: Yes PP BM Prov: Yes PP Breasts Prov: Normal PP Lungs Prov: Normal PP Abdomen/Uterus Prov: Abnormal PP Lochia Prov: Normal PP CVA Tenderness Prov: Normal PP Extremities Prov: Abnormal PP C/S Incision Prov: Normal PP Progress Prov: Normal PP Comments Phys Exam Prov: breast NT, NE; Abd soft ND fundus firm below the umb, incision clean and dry no suppt or discharge [place] in [place]; Ext no calf tenderness, but bilateral pedal edema mild PP Impression Prov: Normal progression PP Plan Prov: Continue present management PP Progress Note Prov: Continue PP care and OOB and ambulation IP PP Procedures: None
--- NOTE | 2018-12-10 07:38 | OBDCSUM ---
Datetime: 12/10/2018 07:36 Discharged to, Provider: Home Follow up at, Provider: Dr Salazar Disch Instr Activity: Bedrest; May be up to bathroom; May be up for meals; May Shower Disch Instr Diet: Regular Discharge Instructions, Provider: Routine instructions given Discharge Diagnosis, Provider: Term Delivered Discharge Time: 12/03/2018 07:36 Follow up in weeks, Provider: 1 wk Disch Referrals: None Contraception discussed, Prov: Yes Disch Activity Restrictions: No exercising; No lifting; No driving; Minimize walking; Minimize stair -climbing; No sexual activity; Nothing in vagina - [place], tampons, douche Discharge Comment, Provider: Continue PNC vit Rx for Percocet Contraception after Delivery: Tubal Ligation
--- NOTE | 2018-12-10 07:39 | OBPPN ---
Datetime: 12/10/2018 07:33 PP Pain Prov: Within normal limits PP Pain Prov comment: No SOB, chest or leg pains PP Nausea Prov: Denies PP Flatus Prov: Yes PP BM Prov: Yes PP Breasts Prov: Normal PP Lungs Prov: Normal PP Abdomen/Uterus Prov: Abnormal PP Lochia Prov: Normal PP Vulva/Perineum Prov: Normal PP CVA Tenderness Prov: Normal PP Extremities Prov: Normal PP C/S Incision Prov: Normal PP Progress Prov: Normal PP Comments Phys Exam Prov: Abd soft ND, fundus firm below umb, incision clean and dry no suppt or d ischarge, ken in place; Ext no calf tenderness. PP Impression Prov: Normal progression PP Plan Prov: Discharge PP Progress Note Prov: d/c home and appt to office 1 wk IP PP Procedures: None Vital Signs Provider PP: Reviewed
[2018-12-10] MEDS: Simethicone 80 mg Chewtab PO SCH ×2 (09:04→15:10)
[2018-12-10 19:27] VITALS: BP 105/65; PULSE 77; TEMP 98
== END 2018-12-10 11:45 | disposition home or self-care (01) | DRG 371 ==
LOC: H.L&D 01:20 → H.OB/GYN 13:01
PROVIDERS: ADMIT Specialist; ATTEND Specialist
PROC: 10D00Z1 Extraction of Products of Conception, Low, Open Approach (ICD-10-PCS; principal; 2018-12-07)
PROC: 0UB70ZZ Excision of Bilateral Fallopian Tubes, Open Approach (ICD-10-PCS; 2018-12-07)
PROC: 4A1HXCZ Monitoring of Products of Conception, Cardiac Rate, External Approach (ICD-10-PCS; 2018-12-07)
DX: O34.211 Maternal care for low transverse scar from previous cesarean delivery (principal); N85.8 Other specified noninflammatory disorders of uterus; Z37.0 Single live birth; Z30.2 Encounter for sterilization; Z3A.38 38 weeks gestation of pregnancy; O36.63X0 Maternal care for excessive fetal growth, third trimester, not applicable or unspecified; N73.6 Female pelvic peritoneal adhesions (postinfective)

== ENCOUNTER 2019-02-08 10:43 | Emergency (ER) | payer OTHER ==
[2019-02-08 10:43] VITALS: BMI 38.6
[2019-02-08] MEDS ORDERED: Sodium Chloride 0.9% 1,000 ML IV STA (11:33)
--- NOTE | 2019-02-08 11:43 | ED PDOC ---
HPI: Abdomen Chief Complaint (Provider): Generalized abdominal pain with diarrhea History Per: Patient History/Exam Limitations: no limitations Onset/Duration Of Symptoms: Days (2 days) Outside of [place] travel?: No Current Symptoms Are (Timing): Still Present Location Of Pain/Discomfort: Diffuse. denies: LUQ Quality Of Discomfort: Dull Associated Symptoms: Nausea, Diarrhea (more than 3 episodes of watery diarrhea today and yesterday), Loss Of Appetite. denies: Fever, Chills, Vomiting, Back Pain, Chest Pain, Urinary Symptoms (no dysuria, frequency or urgency) Exacerbating Factors: None Alleviating Factors: None Last Bowel Movement: Today (diarrhea) Additional Complaint(s): 33 yo female with no medical history presents today with complaint of generalized abdominal pain with diarrhea. Abdominal pain is not localized and associated with several episodes of watery diarrhea (>3 episodes each day) that all started 2 days prior. Associated with nausea and generalized malaise. Reports decreased PO intake, last meal was yesterday evening, home cooked chicken soup. Reports sick contact of her daughter who had vomiting and diarrhea. Denies chest pain, dypsnea, bleeding per rectum, fevers, chills, dysuria, frequency, urgency, vomiting. PMD: none Abnormal Vaginal Bleeding: No Last Menstral Period: 02/08/19 <Odilia Edwards - Last Filed: 02/08/19 13:47> <Luciano De Leon - Last Filed: 02/08/19 14:01> Time Seen by Provider: 02/08/19 11:01 Chief Complaint (Nursing): GI Problem Supervising Attending Note - Supervising Attending Note The Documented history was done by the: Physician Fisher Mussel The documented physical exam was done by the: Physician Fisher Mussel The documented procedures were done by the: Physician Fisher Mussel - Attestation: I have personally seen and examined this patient.: Yes I have fully participated in the care of the patient.: Yes I have reviewed all pertinent clinical information: Yes - Notes: Notes:: Diarrhea, abd pain. Daughter had similar. <Luciano De Leon - Last Filed: 02/08/19 14:01> Past Medical History Reviewed: Historical Data, Nursing Documentation, Vital Signs Vital Signs: Last Vital Signs Temp 97.2 F L 02/08/19 11:05 Pulse 100 H 02/08/19 11:05 Resp 16 02/08/19 11:05 BP 107/73 02/08/19 11:05 Pulse Ox 96 02/08/19 11:05 Primary Care Provider: FAMILY PROVIDER,NO - Medical History PMH: Denies: Depression, Diabetes, HTN - Surgical History Surgical History: (x2) - Family History Family History: States: Unknown Family Hx - Social History Current smoker - smoking cessation education provided: No Ex-Smoker (has not smoked in the last 12 months): No Alcohol: None Drugs: Denies - Immunization History Hx Tetanus Toxoid Vaccination: No Hx Influenza Vaccination: No Hx Pneumococcal Vaccination: No <Odilia Edwards - Last Filed: 02/08/19 13:47> Vital Signs: Last Vital Signs Temp 97.2 F L 02/08/19 11:05 Pulse 100 H 02/08/19 11:05 Resp 16 02/08/19 11:05 BP 107/73 02/08/19 11:05 Pulse Ox 96 02/08/19 13:51 <Luciano De Leon - Last Filed: 02/08/19 14:01> - Home Medications Home Medications: Ambulatory Orders Medication Instructions Recorded Multivit/Folic Acid/I 1 tab PO DAILY 12/24/16 [ Plus] Ibuprofen [Motrin] 600 mg PO TID 7 Days tab 02/08/19 - Allergies Allergies/Adverse Reactions: Allergies Allergy/AdvReac Type Severity Reaction Status Date / Time latex Allergy Mild itching,LINUS Verified 10/21/18 02:03 H Review of Systems Constitutional: Positive for: Malaise. Negative for: Fever, Chills, Weakness Cardiovascular: Negative for: Chest Pain, Palpitations, Edema Respiratory: Negative for: Cough, Shortness of Breath, SOB with Exertion Gastrointestinal: Positive for: Nausea, Abdominal Pain (generalized), Diarrhea (>3 episodes). Negative for: Vomiting, Melena, Hematochezia Genitourinary Female: Negative for: Dysuria, Frequency Neurological: Negative for: Weakness <Odilia Edwards - Last Filed: 02/08/19 13:47> Physical Exam - Physical Exam Appears: Positive for: No Acute Distress Skin: Positive for: Normal Color, Warm, Dry Eye Exam: Positive for: Normal appearance ENT: Positive for: Other (moist mucus membranes) Cardiovascular/Chest: Positive for: Regular Rate, Rhythm (S1 and S2 appreciated on exam). Negative for: Murmur Respiratory: Positive for: Normal Breath Sounds. Negative for: Decreased Breath Sounds, Accessory Muscle Use, Crackles, Rales, Rhonchi, Stridor, Wheezing, Respiratory Distress Gastrointestinal/Abdominal: Positive for: Normal Exam, Bowel Sounds (normoactive bowel sounds present in all four quadrants), Soft. Negative for: Tenderness, Distended, Guarding, Rebound Back: Positive for: Normal Inspection. Negative for: L CVA Tenderness, R CVA Tenderness Extremity: Negative for: Tenderness, Pedal Edema, Calf Tenderness, Swelling Neurological/Psych: Positive for: Awake, Alert <Odilia Edwards - Last Filed: 02/08/19 13:47> - Physical Exam Gastrointestinal/Abdominal: Positive for: Soft. Negative for: Tenderness <Luciano De Leon M - Last Filed: 02/08/19 14:01> - Laboratory Results Result Diagrams: 02/08/19 12:34 02/08/19 12:34 - ECG O2 Sat by Pulse Oximetry: 96 - Progress ED Course And Treament: 33 yo female with no medical history presents today with complaint of generalized abdominal pain associated with >3 episodes of watery diarrhea. Working Diagnosis: Viral Gastroenteritis Plan: -- CMP -- CBC -- Urine Dip -- Toradol x1 -- Bentyl -- Zofran -- 1L NS bolus Re-examined @ 1345 - patient reports feeling much better and states she no longer has abdominal pain - Mild transaminitis noted on lab work. - At this time patient is safe for discharge, to follow up with Dr. Spicer (GI) outpatient for mild transaminitis and follow up with PMD (both referrals given to patient) <Odilia Edwards - Last Filed: 02/08/19 13:47> - Laboratory Results Result Diagrams: 02/08/19 12:34 02/08/19 12:34 Lab Results: Total Bilirubin 0.7 mg/dl (0.2-1.3) 02/08/19 12:34 AST 72 U/L (14-36) H D 02/08/19 12:34 ALT 75 U/L (9-52) H D 02/08/19 12:34 Alkaline Phosphatase 98 U/L (38-126) 02/08/19 12:34 Total Protein 7.5 G/DL (6.3-8.2) 02/08/19 12:34 Albumin 4.0 g/dL (3.5-5.0) 02/08/19 12:34 Globulin 3.4 gm/dL (2.2-3.9) 02/08/19 12:34 Albumin/Globulin Ratio 1.2 (1.0-2.1) 02/08/19 12:34 Lipase 103 U/L (23-300) 02/08/19 12:34 - Progress ED Course And Treament: 1400: Stable. AAOx3. Pain free. Tolerated PO. No symptoms currently. Fu with pcp. Likely viral related. <Luciano De Leon - Last Filed: 02/08/19 14:01> Disposition - Patient ED Disposition Is Patient to be Admitted: No Doctor Will See Patient In The: Office - Disposition Disposition: Routine/Home Disposition Time: 13:49 <Odilia Edwards - Last Filed: 02/08/19 13:47> - Patient ED Disposition Is Patient to be Admitted: No - Disposition Disposition: Routine/Home Disposition Time: 12:00 <Luciano De Leon - Last Filed: 02/08/19 14:01> - Clinical Impression Clinical Impression: Diarrhea, Liver enzyme elevation - Disposition Referrals: Rikki Spicer MD [Staff Provider] - 02/11/19 [facility] [Outside] - 02/11/19 Condition: STABLE Additional Instructions: YENNIFER LYONS, thank you for letting us take care of you today. Your provider was Luciano De Leon MD and you were treated for DAIRRHEA, ABD PAIN. The emergency medical care you received today was directed at your acute symptoms. If you were prescribed any medication, please fill it and take as directed. It may take several days for your symptoms to resolve. Return to the Emergency Department if your symptoms worsen, do not improve, or if you have any other problems. Please contact your doctor or call one of the physicians/clinics you have been referred to that are listed on the Patient Visit Information form that is included in your discharge packet. Bring any paperwork you were given at discharge with you along with any medications you are taking to your follow up visit. Our treatment cannot replace ongoing medical care by a primary care provider outside of the emergency department. You have elevated liver enzymes, we are giving you a referral for GI specialist Dr. Spicer to for follow up. Call and make an appointment with him. It is also important to follow up with PMD. Thank you for allowing the [facility] team to be part of your care today. Prescriptions: Ibuprofen [Motrin] 600 mg PO TID 7 Days tab Instructions: Diarrhea in Adolescents and Adults Forms: [employer] (Kosovan)
[2019-02-08 12:38] LABS: BASO % 0.2 % (0.0-2.0); EOS % 0.6 % (0.0-4.0); HEMOGLOBIN 12.1 g/dL (12.0-16.0); LYMPH % 28.3 % (20.0-40.0); MEAN CELL VOLUME 83.8 fl (81.0-99.0); MEAN CORPUSCULAR HEMOGLOBIN 27.2 pg (27.0-31.0); MEAN CORPUSCULAR HGB CONC 32.5 g/dL (33.0-37.0); MEAN PLATELET VOLUME 7.9 fl (7.2-11.7); MONO # 0.4 K/uL (0.0-0.8); MONO % 10.6 % (0.0-10.0); NEUT # 2.2 K/uL (1.8-7.0); NEUT % 60.3 % (50.0-75.0); RBC 4.44 Mil/uL (3.80-5.20); RED CELL DISTRIBUTION WIDTH 15.1 % (11.5-14.5); WHITE BLOOD COUNT 3.6 K/uL (4.8-10.8)
[2019-02-08 12:47] LABS: ALB/GLOB RATIO 1.2 (1.0-2.1); ALT/SGPT 75 U/L (9-52); AST/SGOT 72 U/L (14-36); BLOOD UREA NITROGEN 5 mg/dl (7-17); CALCIUM 8.7 mg/dL (8.4-10.2); GFR NON-AFRICAN AMERICAN > 60; LIPASE 103 U/L (23-300)
[2019-02-08 14:48] VITALS: BP 99/61; PULSE 66; RESP 18; TEMP 98.6; O2SAT 99
== END 2019-02-08 14:54 | disposition home or self-care (01) ==
LOC: H.ER 10:43
DX: R19.7 Diarrhea, unspecified (principal); R94.5 Abnormal results of liver function studies; Z87.891 Personal history of nicotine dependence
CPT/HCPCS: 80053; 81025; 83690; 85025; 96361; 96374; 96375; 99283; J1885; J2405; J7030